=== PATIENT | male | born 1960 | race Caucasian/White ===

== ENCOUNTER → 2021-04-18 | Outpatient (CLI) | payer BC ==
[~2021-04-18] VITALS: Ht 180 cm; Wt 95.0 kg
[~2021-04-18] MED LIST: ASP81TEC PO; ATOR10TA66 PO; CATHETER FLUSH 10 ML SYR IV PRN; ISOS30TA82 PO; LISI5TAB PO; METO25TA2 PO; ORPH100T PO; PANT40TA52 PO
[2021-04-18 09:09] VITALS: BP 119/81
--- NOTE | 2021-04-18 11:33 | Cardiology Stress Test Report ---
Stress Test Report Date of Procedure/Referring: Date of Procedure: Apr 18, 2021 PCP Kris Kam MD Admitting Physician Gus Nobles DO Indications: HTN Baseline Heart Rate: 71 Baseline Blood Pressure: Blood Pressure Systolic: 119 Blood Pressure Diastolic: 81 Vital Signs Date Time Temp Pulse Resp B/P (MAP) Pulse Ox O2 Delivery O2 Flow Rate FiO2 04/18/21 09:09 88 16 119/81 (94) 98 Room Air Baseline Vital Signs Vital Signs Date Time Temp Pulse Resp B/P (MAP) Pulse Ox O2 Delivery O2 Flow Rate FiO2 04/18/21 09:09 88 16 119/81 (94) 98 Room Air Baseline EKG: Baseline EKG: NSR Summary: After explaining the procedure and details to the patient, he signed the consent and was brought to the stress nuclear laboratory. Patient exercised on standard Mark Anthony protocol, EKG, heart rate and blood pressure were monitored continuously, resting and stress doses of radio tracer were injected, imaging was acquired and reviewed in the short axis, horizontal long axis and vertical long axis views Patient was able to exercise for a total of 7 minutes on Mark Anthony protocol, METs 8.5 Maximum heart rate 144 Maximum blood pressure 167/76 Stress EKG, Minimal nondiagnostic changes Recovery EKG, Return to baseline TID: 0.87 SSS: 8 SDS: 5 EF: 69 Conclusion: 1. Good exercise tolerance for a total of 7 minutes on standard Mark Anthony protocol, 8.5 METS achieving 89% of maximal expected heart rate 2. Minimal nondiagnostic EKG changes with exercise return to baseline during recovery 3. Appropriate heart rate and blood pressure response to exercise return to baseline during recovery 4. Diaphragmatic attenuation with mild decrease uptake involving the basal to mid inferior wall and inferolateral wall with mild reversibility 5. Normal left ventricular size, EF 69% KRIS KAM MD Apr 18, 2021 11:33
== END ==
LOC: CARD 07:30
PROVIDERS: ATTEND Internal Medicine Cardiovascular Disease
DX: I10 Essential (primary) hypertension (principal)
CPT/HCPCS: 78452; 93017; A9502